=== PATIENT | male | born 1990 | race American Indian/Alaskan Native ===

== ENCOUNTER 2018-05-25 14:35 | Emergency (ER) | payer MEDICAID ==
[2018-05-25 14:54] VITALS: BMI 24.4
[2018-05-25 15:18] VITALS: BP 123/70; PULSE 55; RESP 18; TEMP 98.3; O2SAT 98
--- NOTE | 2018-05-25 17:36 | C.PDOC ---
History Of Present Illness 28 year old male patient presents to the ER with c/o abscess and pain to right third toe. Patient says he has had the pain for several days and he "shaved it down". Patient expressed there was clear fluid in the abscess. Patient does not have other complaints. Chief Complaint (Nursing): Lower Extremity Problem/Injury History Per: Patient History/Exam Limitations: no limitations Onset/Duration Of Symptoms: Days Current Symptoms Are (Timing): Still Present Past Medical History Reviewed: Historical Data, Nursing Documentation, Vital Signs Vital Signs: Last Vital Signs Temp 98.3 F 05/25/18 15:05 Pulse 55 L 05/25/18 15:05 Resp 18 05/25/18 15:38 BP 123/70 05/25/18 15:05 Pulse Ox 98 05/25/18 17:46 Family History: States: No Known Family Hx - Social History Hx Alcohol Use: No Hx Substance Use: No - Immunization History Hx Tetanus Toxoid Vaccination: No Hx Influenza Vaccination: No Hx Pneumococcal Vaccination: No Review Of Systems Except As Marked, All Systems Reviewed And Found Negative. Musculoskeletal: Positive for: Foot Pain (Pain to right third toe) Skin: Positive for: Other (abscess to right third toe) Physical Exam - Physical Exam Appears: Well, Non-toxic, No Acute Distress Skin: Normal Color, Warm, Dry Head: Atraumatic, Normacephalic Cardiovascular: Rhythm Regular Respiratory: Normal Breath Sounds Gastrointestinal/Abdominal: Normal Exam, Soft, No Tenderness Extremity: Other (medial aspect of right third toe abscess draining; clear discharge fluid; +pain) Neurological/Psych: Oriented x3, Normal Speech Gait: Steady ED Course And Treatment O2 Sat by Pulse Oximetry: 98 (RA) Pulse Ox Interpretation: Normal Medical Decision Making Medical Decision Making: Impression: Medial aspect of right third toe. Advise patient to f/u with tool filer Disposition - Disposition Referrals: [facility] [Outside] Podiatry Clinic [Outside] Disposition: HOME/ ROUTINE Disposition Time: 15:00 Condition: GOOD Additional Instructions: KAREEM WRIGHT, thank you for letting us take care of you today. Your provider was Jake Aguilar DO and you were treated for RT FOOT PAIN. The emergency medical care you received today was directed at your acute symptoms. If you were prescribed any medication, please fill it and take as directed. It may take several days for your symptoms to resolve. Return to the Emergency Department if your symptoms worsen, do not improve, or if you have any other problems. Please contact your doctor or call one of the physicians/clinics you have been referred to that are listed on the Patient Visit Information form that is included in your discharge packet. Bring any paperwork you were given at discharge with you along with any medications you are taking to your follow up visit. Our treatment cannot replace ongoing medical care by a primary care provider outside of the emergency department. Thank you for allowing the [facility] team to be part of your care today. Keep area clean and DRY at all times. Follow up with the podiatry clinic this week for re-evaluation and further management. Prescriptions: Cephalexin [cephalexin] 500 mg PO TID #15 cap Tolnaftate [Tinactin] 108 gm TP BID #1 powder Instructions: Athlete's Foot (DC) Forms: [employer] ([place]) - Clinical Impression Clinical Impression: Abscess, Tinea pedis - Scribe Statement The provider has reviewed the documentation as recorded by the Rosanneibmargot Urbano Do Provider Attestation: All medical record entries made by the Scribe were at my direction and personally dictated by me. I have reviewed the chart and agree that the record accurately reflects my personal performance of the history, physical exam, medical decision making, and the department course for this patient. I have also personally directed, reviewed, and agree with the discharge instructions and disposition.
== END 2018-05-25 15:38 | disposition home or self-care (01) ==
LOC: C.ER 14:35
DX: B35.3 Tinea pedis (principal); L02.611 Cutaneous abscess of right foot